=== PATIENT | male | born 1940 | race Caucasian/White ===

== ENCOUNTER 2023-09-16 08:06 | Outpatient (AMB) | payer MEDICARE, OTHER, SELFPAY ==
--- NOTE | 2023-09-16 08:21 | MHC.OFFVIS ---
Intake Intake Visit Reasons: elevated BUN/CREA, bladder distention Intake Note: New Patient is Present for Elevated BUN/Crea/Bladder Distention Urology Medication: Previously on Finasteride Antibiotic Allergies: Cephalxin Blood Thinners: None [facility]acy: [facility] Patient had catheter placed at [facility] March 27, patient has been having catheter changed and voiding trials every month since cath placement. Patient previously had done urodynamic done and is here to discuss further treatment options for enlarged prostate Allergies cephalexin Allergy (Mild, Verified 09/16/23 08:33) Unknown HPI HPI Comments History of Present Illness Details Enrique is a pleasant male. He seen for the following urologic conditions - lower urinary tract symptoms Lower urinary tract symptoms Longstanding treatment with finasteride Effective emptying Refill provided [facility] Medical History History of high blood pressure Enlarged prostate Review of Systems Const Denies chills and Denies fever(s) Card Reports no additional complaints and Denies syncope Resp Denies cough GI Denies abdominal pain and Denies heartburn Reports as per HPI and Denies change in libido Neuro Denies syncope Psych Denies change in libido Endo Denies change in libido Physical Exam Const General: cooperative, healthy appearing, comfortable and no acute distress Orientation/consciousness: patient oriented x3 HEENT Face and sinus: Yes normal facial exam Mouth: moist mucous membranes Neck Neck: Yes normal visual inspection, Yes full ROM and Yes trachea midline Chest Chest palpation & inspection: normal inspection of the chest Resp Effort & Inspection: normal respiratory effort, able to speak in complete sentences and no respiratory distress GI Inspection: Yes normal to inspection Back/Spine/Pelvis Cervical Spine: normal cervical lordosis Thoracic/Lumbar Spine: thoracic and lumbar spine normal to inspection Skin General skin exam: no rashes or lesions noted Neuro General: patient oriented x3, gait normal, tone normal and moves all extremities Extrem General: Yes normal to inspection and Yes capillary refill normal Assessment & Plan Assessment & Plan (1) BPH loc w urin obs/LUTS: Code(s): N40.1 - Benign prostatic hyperplasia with lower urinary tract symptoms Plan He will call Patient Instructions: Imaging studies, laboratory and physical exam results were discussed and reviewed in detail. No major barriers to patient understanding were identified. An opportunity to ask questions regarding the treatment plan was provided. All questions were answered. The patient expressed understanding and agreement with the above treatment plan. The patient is aware they should contact our office by phone for worsening of their current condition or the appearance of new urologic symptoms. Compliance is encouraged with any medications and followup testing that is ordered. It is a privilege to participate in the urologic care of your patient. If you have any questions or concerns regarding treatment for the above conditions, or other urologic issues, please do not hesitate to contact me. The office telephone contact is [phone]. This note is constructed using voice recognition software. While every effort has been made to ensure accuracy telephone plant power operator errors may have been included. Yours sincerely, Dr Kory Pham MD, [facility] - Urology Providers of Expert, Compassionate Care for the Genitourinary System Coding Level of Care Code Est Pt Level 4 (07888) Diagnoses BPH loc w urin obs/LUTS N40.1
== END 2023-09-16 09:33 | disposition home or self-care (01) ==
PROVIDERS: Visit Provider Urology
DX: N40.1 Benign prostatic hyperplasia with lower urinary tract symptoms (principal)
CPT/HCPCS: 99204

== ENCOUNTER → 2023-09-16 08:06 | Outpatient (BNVA) | payer MEDICARE, OTHER, SELFPAY | PROVIDERS: Visit Provider Urology | DX: N40.1 Benign prostatic hyperplasia with lower urinary tract symptoms (principal); N13.8 Other obstructive and reflux uropathy | CPT/HCPCS: 99202 ==